=== PATIENT | male | born 1945 | race Caucasian/White ===

== ENCOUNTER 2018-09-21 12:26 | Inpatient (IN) | payer MEDICARE ==
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
--- NOTE | 2018-09-21 14:03 | XR ---
EXAMINATION TYPE: XR chest 1V portable DATE OF EXAM: 09/21/2018 COMPARISON: NONE HISTORY: Preop left hip fracture TECHNIQUE: frontal view of the chest is obtained on 2 images. FINDINGS: There is no focal air space opacity, pleural effusion, or pneumothorax seen. The cardiac silhouette size is within normal limits. The patient is rotated. There are posterior right rib fractu res at the fifth sixth and seventh ribs of questionable age. Additionally left rib fractures are pres ent at the fifth sixth seventh and eighth ribs. IMPRESSION: Rib fractures of indeterminate age.
[2018-09-21 14:39] LABS: Basophils % (A) 0 %; Eosinophils # (A) 0.1 k/uL (0-0.7); Eosinophils % (A) 0 %; HCT 40.1 % (39.0-53.0); HGB 12.9 gm/dL (13.0-17.5); Lymphocytes # (A) 1.7 k/uL (1.0-4.8); Lymphocytes % (A) 13 %; MCH 30.7 pg (25.0-35.0); MCHC 32.3 g/dL (31.0-37.0); MCV 95.3 fL (80.0-100.0); Mean Platelet Volume 6.8; Monocytes # (A) 0.7 k/uL (0-1.0); Monocytes % (A) 6 %; Neutrophils # (A) 10.7 k/uL (1.3-7.7); Neutrophils % (A) 80 %; Platelet Count 356 k/uL (150-450); RBC 4.21 m/uL (4.30-5.90); RDW 13.4 % (11.5-15.5); WBC 13.4 k/uL (3.8-10.6)
[2018-09-21 14:47] LABS: Albumin 4.1 g/dL (3.5-5.0); Calcium 9.4 mg/dL (8.4-10.2); Potassium 4.3 mmol/L (3.5-5.1); Total Bilirubin 0.4 mg/dL (0.2-1.3)
[2018-09-21] MEDS ORDERED: HYDROmorphone 0.5 MG/0.5 ML SYRINGE IVP PRN (15:12)
[2018-09-21] MEDS ORDERED: NALOXONE 0.4 MG/ML 1 ML VIAL IV PRN (15:12)
[2018-09-21 16:02] LABS: Prothrombin Time 10.5 sec (9.0-12.0)
[2018-09-21] MEDS: SODIUM CHLORIDE 0.9% 1,000 ML IV SCH ×2 (16:02→23:37)
[2018-09-21] MEDS: MORPHINE SULFATE 4 MG/ML SYRINGE IV PRN ×3 (16:03→23:37)
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
[2018-09-21 19:24] VITALS: BMI 27.6
[2018-09-21] MEDS: ENOXAPARIN 40 MG/0.4 ML SYRINGE SQ SCH (22:31)
[2018-09-22] MEDS: MORPHINE SULFATE 4 MG/ML SYRINGE IV PRN (04:03)
[2018-09-22] MEDS ORDERED: LACTATED RINGERS 1,000 ML IV ONE ×2 (06:17→07:56)
[2018-09-22] MEDS ORDERED: fentaNYL (PF) 50 MCG/ML 2 ML AMP IV ONE (06:43)
[2018-09-22] MEDS ORDERED: TRANEXAMIC ACID 1,000 MG in SODIUM CHLORIDE 0.9% 100 ML IVPB ONE ×2 (06:56→07:00)
[2018-09-22] MEDS ORDERED: ROPIVACAINE 246.25 MG, EPINEPHrine 0.5 MG, KETOROLAC 30 MG, cloNIDine HCL/PF 80 MCG, WA... MISCELLANE ONE ×5 (06:57)
[2018-09-22] MEDS ORDERED: SODIUM CHLORIDE 0.9% 100 ML with ceFAZolin 2,000 MG IV ONE ×2 (07:00)
[2018-09-22] MEDS ORDERED: ceFAZolin 3,000 MG in SODIUM CHLORIDE 0.9% IRRIGATIO 3,000 ML IRRIGATION ONE (07:56)
--- NOTE | 2018-09-22 08:54 | P.OP ---
Date of Procedure: 09/22/18 Preoperative Diagnosis: Displaced left hip femoral neck fracture Postoperative Diagnosis: Same Procedure(s) Performed: Direct anterior left total hip arthroplasty Implants: 1. Depuy Corail KA size 15 standard collar press-fit femoral stem 2. Depuy pinnacle 56 mm press-fit acetabular shell 3. Depuy pinnacle polyethylene acetabular liner 56 mm OD 36 mm ID 4. Biolox delta ceramic femoral head +5 36 mm Anesthesia: SHARONA, local Surgeon: Marco Antonio Finnegan [place] Worker Helper #1: Juan Wyatt Estimated Blood Loss (ml): 350 Pathology: other (Femoral head) Condition: stable Disposition: PACU Indications for Procedure: 73-year-old patient seen with a displaced left hip femoral neck fracture. After treatment options were discussed elected to proceed with direct anterior left total hip arthroplasty. Operative Findings: see description of procedure Description of Procedure: The patient was taken to the operative suite. Patient underwent a general anesthetic by the department of anesthesia. Patient was then transferred to the [place] table. Patient was given preoperative IV antibiotics and TXA. Both lower extremities were placed in standard leg spars. The hip was then prepped and draped in the normal sterile orthopedic fashion. A standard anterior incision was made beginning 3 cm lateral and 1 cm distal to the ASIS extending 10 cm. Dissection was then carried down through the subcutaneous soft tissues down to the fascia overlying the tensor fascia stewart. An incision was now made through the fascia. Careful dissection was taken down exposing the tensor fascia stewart muscle. A Cobra retractor was now placed along the medial femoral neck and a second one along the lateral femoral neck. The venous circumflex vessels were now identified, cauterized and clipped. We identified the anterior hip capsule. An incision was made through the hip capsule along the lateral border. I performed a partial anterior capsulectomy. We immediately encountered hemarthrosis which was evacuated. The displaced femoral neck fracture was identified. Retractors were now placed around the femoral neck itself. I used a sagittal saw to remove some excessive neck. The femoral head was now removed without difficulty. The extremity was now rotated to 45 of external rotation. It was locked in position. Residual labrum was now debrided out. Serial reaming was performed of the acetabulum while Jorge MARIO assisted holding an anterior retractor for exposure. Once we reached the appropriate size and a trial was position and fit nicely. The appropriate size was now chosen opened and made available. It was introduced into the acetabulum without difficulty. The C-arm/fluoroscopy was now brought into the operative field. We made sure we had a true AP pelvic view. We now under direct C-arm/fluoroscopy introduced into the acetabular component with appropriate version and inclination. I held the cup in appropriate position well Jorge MARIO used a mallet to seat the acetabular component. I noted the component now to be well seated and stable. Acetabular cup introduce her was removed. The C-arm was pulled back. An appropriate liner was introduced and clicked into position. It was felt to be stable. At this point retractors were removed. The extremity was now placed into 120 external rotation with no traction. The leg was now dropped to the ground and adducted. Appropriate retractors were now positioned along the proximal femur. We also placed our femoral look into position. Additional capsular releasing was performed to gain access to the proximal femur. We now used a box osteotome. A canal finder was now utilized. Serial broaching was now performed with the assistance of Jorge MARIO tapping the broaches down with a mallet while held the broach in appropriate rotation and position. This was done until we reached the appropriate size with good overall rotational stability. Appropriate calcar planing was performed. A trial head/neck was placed into position. The hip was now reduced. The C-arm/fluoroscopy was brought back into the operative field. A spot film was obtained of the nonoperative hip. A spot film was obtained of the trial components. Overlays were performed, we noted good overall alignment and positioning for determining leg length. The C-arm/fluoroscopy was pulled back. Retractors were repo sitioned and the hip was dislocated. The leg was again taken down to the ground and adducted. Appropriate retractors were repositioned as well as the femoral hook. All trial components were removed. The femoral implant was opened along with the femoral head. The femoral implant was introduced on the appropriate handle into our pre-broached area. I held the component position well Jorge MARIO used a mallet to seat the femoral component. The femoral component was now noted to be well seated and stable.. The femoral head was introduced with good positioning and fixation noted. Retractors were now removed. The hip was now reduced. There appeared be good positioning of the hip confirmed on intraoperative fluoroscopy. Spot films were obtained to document this. A second gram of TXA was given. The deep and superficial soft tissues were infiltrated with local analgesic. Bipolar cautery had been utilized intermittently through the procedure for hemostasis. The wound was irrigated copiously with pulse lavage mechanical irrigation. The fascia was repaired with Vicryl suture. The subcutaneous soft tissues were repaired in layers with Vicryl suture. The skin was approximated with pernio/Dermabond. Sterile dressings were applied. Patient was then awakened, transferred to a bed and taken to recovery in stable condition. Jorge MARIO assisted with the complex procedure.
[2018-09-22] MEDS ORDERED: NALOXONE 0.4 MG/ML 1 ML VIAL IV PRN (08:55)
[2018-09-22] MEDS ORDERED: ONDANSETRON 4 MG/2 ML VIAL IVP PRN (08:55)
[2018-09-22] MEDS ORDERED: traMADol 50 MG TAB PO PRN (08:55)
[2018-09-22] MEDS ORDERED: HYDROcodone/APAP 5-325MG 1 EACH TAB PO PRN (08:55)
[2018-09-22] MEDS ORDERED: HYDROmorphone 0.5 MG/0.5 ML SYRINGE IVP PRN ×3 (08:55)
--- NOTE | 2018-09-22 08:55 | XR ---
EXAMINATION TYPE: XR Hip Limited LT, FL guidance operating room DATE OF EXAM: 09/22/2018 CLINICAL HISTORY: Left anterior hip arthroplasty. Fluoroscopic documentation. TECHNIQUE: Fluoroscopy. COMPARISON: None. FINDINGS: Fluoroscopic guidance was provided during procedure performed by Dr. Finnegan. A total o f 29 seconds of fluoroscopic time was utilized during the procedure and 1 spot images was acquired du ring left hip arthroplasty. IMPRESSION: As Above.
[2018-09-22] MEDS ORDERED: ONDANSETRON 4 MG/2 ML VIAL IVP ONE (10:11)
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
[2018-09-22] MEDS: ONDANSETRON 4 MG/2 ML VIAL IVP PRN (10:55)
[2018-09-22] MEDS: ENOXAPARIN 40 MG/0.4 ML SYRINGE SQ SCH (11:26)
[2018-09-22] MEDS: SODIUM CHLORIDE 0.9% 1,000 ML IV SCH ×3 (11:26→23:17)
[2018-09-22] MEDS: ceFAZolin IN SWFI 2 GM/20 ML SYRINGE IVP SCH ×2 (17:42→23:11)
[2018-09-22] MEDS: LACTATED RINGERS 1,000 ML IV SCH ×2 (17:43→20:07)
[2018-09-22 18:01] LABS: Basophils % (A) 0 %; Eosinophils # (A) 0.1 k/uL (0-0.7); Eosinophils % (A) 1 %; HCT 32.5 % (39.0-53.0); HGB 10.7 gm/dL (13.0-17.5); Lymphocytes # (A) 1.6 k/uL (1.0-4.8); Lymphocytes % (A) 12 %; MCH 31.9 pg (25.0-35.0); MCV 96.7 fL (80.0-100.0); Mean Platelet Volume 7.3; Monocytes # (A) 0.7 k/uL (0-1.0); Monocytes % (A) 5 %; Neutrophils # (A) 10.8 k/uL (1.3-7.7); Neutrophils % (A) 81 %; Platelet Count 268 k/uL (150-450); RBC 3.36 m/uL (4.30-5.90); WBC 13.3 k/uL (3.8-10.6)
[2018-09-22] MEDS: SENNOSIDES-DOCUSATE SODIUM 1 EACH TAB PO SCH (20:06)
[2018-09-22] MEDS: HYDROcodone/APAP 5-325MG 1 EACH TAB PO PRN (23:47)
[2018-09-23] MEDS: HYDROcodone/APAP 5-325MG 1 EACH TAB PO PRN ×3 (05:24→21:37)
--- NOTE | 2018-09-23 07:21 | PN ---
PROGRESS NOTE DATE OF SERVICE: 09/22/2018 PRESENTING COMPLAINT: Hip fracture. INTERVAL HISTORY: Patient is status post fall followed by hip fracture, status post arthroplasty. A little bit drowsy from pain medications. Did not have much of an appetite this morning, slight nausea was present. REVIEW OF SYSTEMS: Done for constitutional, cardiovascular, GI, pulmonary; relevant findings as above. CURRENT MEDICATIONS: Current medications are reviewed include Lovenox for DVT prophylaxis. PHYSICAL EXAMINATION: On examination, temperature 98.1, pulse 68, respiration 15, blood pressure 131/71, pulse ox 95% on room air. GENERAL APPEARANCE: Lying in bed, awake, tired appearing. EYES: Pupils equal. Conjunctivae normal. NECK: JVD not raised. Mass not palpable. RESPIRATORY: Effort normal. LUNGS: Clear. CARDIOVASCULAR: First and second sounds normal. No edema. ABDOMEN: Soft, nontender. Liver and spleen not palpable. PSYCHIATRY: Able to answer questions. MUSCULOSKELETAL: Dressing over the operative site. INVESTIGATIONS: White count 13.3, hemoglobin 10.7. ASSESSMENT: 1. Left hip fracture secondary to fall followed by arthroplasty. 2. Acute postoperative blood loss anemia expected from surgery. 3. Essential hypertension. 4. Leukocytosis reactive from surgery, no evidence of infection. 5. Nausea as a side effect of pain medication. PLAN: Care was discussed with the patient. Questions were answered. Iron supplementation will be added. MMODL / IJN: [id number] /
[2018-09-23] MEDS: MELOXICAM 7.5 MG TAB PO SCH (09:16)
[2018-09-23] MEDS: ENOXAPARIN 40 MG/0.4 ML SYRINGE SQ SCH (09:16)
[2018-09-23] MEDS: FERROUS SULFATE 325 MG TAB PO SCH ×2 (09:17→17:54)
[2018-09-23 09:22] LABS: Basophils % (A) 0 %; Eosinophils # (A) 0.1 k/uL (0-0.7); Eosinophils % (A) 1 %; HCT 31.8 % (39.0-53.0); HGB 10.4 gm/dL (13.0-17.5); Lymphocytes # (A) 1.7 k/uL (1.0-4.8); Lymphocytes % (A) 15 %; MCH 30.9 pg (25.0-35.0); MCHC 32.6 g/dL (31.0-37.0); MCV 94.8 fL (80.0-100.0); Monocytes # (A) 0.7 k/uL (0-1.0); Monocytes % (A) 6 %; Neutrophils % (A) 78 %; Platelet Count 257 k/uL (150-450); RBC 3.35 m/uL (4.30-5.90); RDW 13.7 % (11.5-15.5); WBC 11.6 k/uL (3.8-10.6)
--- NOTE | 2018-09-23 10:23 | P.PN ---
Subjective Progress Note Date: 09/23/18 Principal diagnosis: s/p direct anterior left total hip arthroplasty Patient evaluated side, he's resting in his hospital chair. He is ambulating with therapies first time today. He notes improvement in discomfort. He still has a little bit of nausea. Denies any chest pain or shortness of breath Objective - Vital Signs Vital signs: Vital Signs Temp 99.1 F 09/23/18 06:55 Pulse 90 09/23/18 06:55 Resp 17 09/23/18 01:15 BP 143/61 09/23/18 06:55 Pulse Ox 92 L 09/23/18 06:55 Intake & Output 09/22/18 09/23/18 09/23/18 18:59 06:59 18:59 Intake Total 1321 1240 Output Total 715 1700 Balance 606 -460 Intake: IV 1001 Intake, IV Titration 700 Amount Lactated Ringers 1,000 ml 700 @ 70 mls/hr IV .[id number] [facility] Rx#:[id number] Oral 320 540 Output: Urine 365 1700 Uretheral (Bah) 1700 Estimated Blood Loss 350 Other: Voiding Method Indwelling Catheter # Voids 1 - Exam Left lower extremity: Incision is clean, dry, and intact. The exofin fusion tape is in good condition. There is minimal soft tissue swelling and ecchymosis surrounding the medial and lateral aspects of the incision. Calf is soft, no tenderness with palpation. Plantar flexion, dorsiflexion, EHL, FHL are intact. Sensory exam to light touch throughout the extremity is intact, dorsal pedis pulses 2+. - Labs CBC & Chem 7: 09/23/18 08:57 09/21/18 14:22 Labs: Abnormal Lab Results - Last 24 Hours (Table) 09/22/18 09/23/18 Range/Units 17:18 08:57 WBC 13.3 H 11.6 H (3.8-10.6) k/uL RBC 3.36 L 3.35 L (4.30-5.90) m/uL Hgb 10.7 L 10.4 L (13.0-17.5) gm/dL Hct 32.5 L 31.8 L (39.0-53.0) % Neutrophils # 10.8 H 9.0 H (1.3-7.7) k/uL Assessment and Plan Plan: Assessment: Postop day #1 status post direct anterior left total hip arthroplasty Plan: Pain control, utilize oral medication GI and DVT prophylaxis, continue current medication Encourage incentive spirometer Daily dressing changes Icing and elevating the left lower extremity Continue work with physical therapy Medical recommendations Discharge planning: Plan for discharge home tomorrow, case management and social work are working for rehab placement if needed Time with Patient: Less than 30
[2018-09-23] MEDS: SODIUM CHLORIDE 0.9% 1,000 ML IV SCH ×2 (15:33→16:51)
[2018-09-23] MEDS: LACTATED RINGERS 1,000 ML IV SCH (15:34)
[2018-09-23] MEDS: ONDANSETRON 4 MG/2 ML VIAL IVP PRN (15:42)
[2018-09-23] MEDS: SENNOSIDES-DOCUSATE SODIUM 1 EACH TAB PO SCH (21:37)
[2018-09-23] MEDS: METOPROLOL TARTRATE 50 MG TAB PO SCH (21:37)
--- NOTE | 2018-09-23 23:01 | PN ---
PROGRESS NOTE DATE OF SERVICE: 09/23/2018 PRESENTING COMPLAINT: Hip fracture. INTERVAL HISTORY: Patient is status post hip fracture followed by hip arthroplasty. More awake today. Did tolerate some diet. Slight nausea. Did work a bit with therapy. Some pain is present at the operative site. REVIEW OF SYSTEMS: Done for constitutional, cardiovascular, GI, pulmonary; relevant findings as above. CURRENT MEDICATIONS: Reviewed. They include Lovenox. PHYSICAL EXAMINATION: Temperature 98.5, pulse 99, respiration 16, blood pressure 151/73, pulse ox 95% on 1.5 L. GENERAL APPEARANCE: Sitting up in a chair. Tired-appearing, though more awake. EYES: Pupils equal. Conjunctivae normal. NECK: JVD not raised. Mass not palpable. RESPIRATORY: Effort normal. Lungs are clear. CARDIOVASCULAR: First and second sounds normal. No edema. ABDOMEN: Soft, non-tender. Liver and spleen not palpable. PSYCHIATRY: Answering questions appropriately. INVESTIGATIONS: White count 11.6, hemoglobin 10.4. ASSESSMENT: 1. Left hip fracture secondary to a fall followed by arthroplasty. 2. Acute postoperative blood loss anemia, expected from surgery. 3. Essential hypertension. 4. Leukocytosis, reactive from surgery. No evidence of infection. 5. Nausea as a side effect of pain medication. PLAN: Continue current medication and treatment plan. Will discontinue the IV fluids. I told the patient to use less pain medication if possible. MMODL / IJN: [id number] /
[2018-09-24 07:21] VITALS: BP 161/73; PULSE 81; RESP 18; TEMP 98.7
[2018-09-24] MEDS: MELOXICAM 7.5 MG TAB PO SCH (08:41)
[2018-09-24] MEDS: METOPROLOL TARTRATE 50 MG TAB PO SCH (08:41)
[2018-09-24] MEDS: FERROUS SULFATE 325 MG TAB PO SCH (08:41)
[2018-09-24] MEDS: ENOXAPARIN 40 MG/0.4 ML SYRINGE SQ SCH (08:42)
[2018-09-24] MEDS ORDERED: LISINOPRIL 20 MG TAB PO SCH (09:00)
--- NOTE | 2018-09-24 11:27 | P.PN ---
Subjective Progress Note Date: 09/24/18 Principal diagnosis: s/p direct anterior left total hip arthroplasty Patient evaluated side, he's resting in his hospital chair. Pains continue to improve. Patient's nausea has improved. Denies any chest pain or shortness of breath Objective - Vital Signs Vital signs: Vital Signs Temp 98.7 F 09/24/18 07:19 Pulse 81 09/24/18 07:19 Resp 18 09/24/18 07:19 BP 161/73 09/24/18 07:19 Pulse Ox 93 L 09/24/18 07:19 Intake & Output 09/23/18 09/24/18 09/24/18 18:59 06:59 18:59 Intake Total 240 280 180 Output Total 200 400 Balance 40 -120 180 Intake: Oral 240 280 180 Output: Urine 200 400 Other: Voiding Method Indwelling Catheter # Voids 1 - Exam Left lower extremity: Incision is clean, dry, and intact. The exofin fusion tape is in good condition. There is minimal soft tissue swelling and ecchymosis surrounding the medial and lateral aspects of the incision. Calf is soft, no tenderness with palpation. Plantar flexion, dorsiflexion, EHL, FHL are intact. Sensory exam to light touch throughout the extremity is intact, dorsal pedis pulses 2+. - Labs CBC & Chem 7: 09/23/18 08:57 09/21/18 14:22 Assessment and Plan Plan: Assessment: Postop day #2 status post direct anterior left total hip arthroplasty Plan: Pain control, plan for discharge on Tylenol and [facility] GI and DVT prophylaxis, aspirin 81 mg twice a day for 30 days Encourage incentive spirometer Daily dressing changes Icing and elevating the left lower extremity Continue work with physical therapy Medical recommendations Discharge planning: Patient will be discharged to subacute rehab today Time with Patient: Less than 30
--- NOTE | 2018-09-24 11:31 | P.DS ---
Providers Date of admission: 09/21/18 14:40 Expected date of discharge: 09/24/18 Attending physician: Marco Antonio Finnegan Consults: 09/21/18 15:13 Consult Physician Routine Consulting Provider: Hernandez Zuñiga Consult Reason/Comments: medical clearance for surgery Do you want consulting provider notified?: Yes Primary care physician: Dustin Choudhary [facility] Course: Date of admission: 09/21/2018 Date of discharge: 09/24/2018 Admission diagnosis: Displaced left subcapital femoral neck fracture Discharge diagnosis: Status post left direct anterior total hip arthroplasty Attending physician: Dr. Finnegan Surgical procedures: Direct anterior left total hip arthroplasty Brief history: Patient is a 73-year-old male who presented to [facility] on 09/21/2018 after sustaining a fall at his home in his driveway. Patient was brought to [facility], it was determined he had a displaced left subcapital femoral neck fracture. I was contacted by the emergency room staff and evaluated the patient. Patient was admitted under orthopedic care with plan for surgical intervention. Internal medicine was consulted for medical clearance and management. Patient was scheduled for surgery on 09/22/2018. Hospital course: Details of patient's surgery can be found in operative report. Patient tolerated the procedure well and was subsequently transported to orthopedic floor. Patient's orthopeidc and medical care was provided daily. Patient had daily laboratory tests performed for evaluation of overall blood counts. Patient had daily physical therapy to include strengthening range of motion as well as education with walker ambulation. Patient was treated with Lovenox for their postoperative DVT prophylaxis during their inpatient stay. Patient was noted to have a relatively uneventful postoperative course. Patient reported satisfactory pain control with oral pain medications by postoperative day 0. Patient showed satisfactory progress with physical therapy. Patient moved steadily through the program and had no difficulty meeting the goals by postoperative day 2. Given patient's otherwise satisfactory course and having met physical therapy goals, plan is to discharge patient rehab on postoperative day 2. Discharge condition/disposition: Patient will be discharged rehab in stable condition. Discharge medications: Instructions are given on resumption of patient's normal daily medications per primary care recommendation, in addition patient will be prescribed Felda 5 mg/325 mg, Tylenol 650 mg, Colace 100 mg, aspirin 81 mg, ferrous sulfate 325 mg. Discharge instructions: 1. Wound care and infection precautions, keep incision dry and covered while showering, no lotions, creams, moisturizers. No soaking, tubs, pools, hottubs. Do not scrub over the incision. 2. Weight-bear as tolerated with walker / cane until follow-up. 3. Ice and elevate when necessary. Do not exceed 20 minutes per hour with ice pack. 4. Utilize compression sleeve until seen at first follow up appointment. 5. Visiting nursing care. 6. Home physical therapy 7. Pain meds and anticoagulants per prescription. 8. Pain medication has potential to cause constipation. Increase oral fluid and fiber intake. Contact primary care provider if you have not had a bowel movement within 48 hours after discharge 9. No anti-inflammatory medication until discussed at first post operative visit, this including Motrin, Aleve, Mobic, Diclofenac 10. Follow up in office at 2 weeks postop with Jorge Wyatt PA-C 11. Follow up with your primary care doctor 7-10 days after discharge. 12. Contact [facility] with any questions, . Procedures: Direct anterior left total hip arthroplasty Patient Condition at Discharge: Fair Plan - Discharge Summary Discharge Rx Participant: Yes New Discharge Prescriptions: New Aspirin [Adult Low Dose Aspirin EC] 81 mg PO BID #60 tablet. Docusate [Colace] 100 mg PO DAILY #30 capsule Ferrous Sulfate [Feosol] 325 mg PO BID #60 tab Hydrocodone/Acetaminophen [Felda 5-325] 1 each PO Q6HR PRN #28 tab PRN Reason: Pain Acetaminophen Tab [Tylenol Tab] 650 mg PO Q6H #60 tablet No Action Metoprolol Tartrate [Lopressor] 50 mg PO BID Enalapril Maleate [Vasotec] 10 mg PO DAILY Discharge Medication List Enalapril Maleate [Vasotec] 10 mg PO DAILY 09/21/18 [History] Metoprolol Tartrate [Lopressor] 50 mg PO BID 09/21/18 [History] Acetaminophen Tab [Tylenol Tab] 650 mg PO Q6H #60 tablet 09/24/18 [Rx] Aspirin [Adult Low Dose Aspirin EC] 81 mg PO BID #60 tablet. 09/24/18 [Rx] Docusate [Colace] 100 mg PO DAILY #30 capsule 09/24/18 [Rx] Ferrous Sulfate [Feosol] 325 mg PO BID #60 tab 09/24/18 [Rx] Hydrocodone/Acetaminophen [Felda 5-325] 1 each PO Q6HR PRN #28 tab 09/24/18 [Rx] Follow up Appointment(s)/Referral(s): Dustin Choudhary, [Primary Care Provider] - 1-2 days Juan Wyatt, SRINI [PHYSICIAN ENVIRONMENTAL CONFLICT MANAGER] - 2 Weeks Activity/Diet/Wound Care/Special Instructions: Orthopedic Discharge Instructions: 1. Wound care and infection precautions, keep incision dry and covered while showering, no lotions, creams, moisturizers. No soaking, pools, hot tubs. Do not scrub over incision. 2. Weight-bear as tolerated with walker / cane until follow-up. 3. Ice and elevate when necessary. Do not exceed 20 minutes per hour with ice pack. 4. Utilize compression sleeve until seen at first follow up appointment. 5. Pain meds and anticoagulants per prescription. 6. Pain medication has potential to cause constipation. Increase oral fluid and fiber intake. Contact primary care provider if you have not had a bowel movement within 48 hours after discharge. 7. No anti-inflammatory medication until discussed at first post operative visit, this including Motrin, Aleve, Mobic, Diclofenac. 8. Follow up in office at 2 weeks postop with Jorge Wyatt PA-C 9. Follow up with your primary care doctor 7-10 days after discharge. 10. Contact [facility] with any questions, . Discharge Disposition: TRANSFER TO SNF/ECF
== END 2018-09-24 15:12 | DRG 470 ==
LOC: EC 12:26 → 4SSUR 14:40
PROVIDERS: ADMIT Orthopaedic Surgery; ATTEND Orthopaedic Surgery
PROC: 0SRB04A Replacement of Left Hip Joint with Ceramic on Polyethylene Synthetic Substitute, Uncemented, Open Approach (ICD-10-PCS; principal; 2018-09-21)
DX: S72.012A Unspecified intracapsular fracture of left femur, initial encounter for closed fracture (principal); D62 Acute posthemorrhagic anemia; W01.0XXA Fall on same level from slipping, tripping and stumbling without subsequent striking against object, initial encounter; Y92.009 Unspecified place in unspecified non-institutional (private) residence as the place of occurrence of the external cause; D72.829 Elevated white blood cell count, unspecified; I10 Essential (primary) hypertension; Z87.81 Personal history of (healed) traumatic fracture; Z79.899 Other long term (current) drug therapy; Z88.0 Allergy status to penicillin
CPT/HCPCS: 36415; 71045; 73501; 73502; 80053; 85025; 85610; 86850; 86900; 86901; 93005

== ENCOUNTER 2018-10-06 13:34 | Inpatient (IN) | payer MEDICARE ==
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
[2018-10-06 15:25] LABS: Basophils # (A) 0.1 k/uL (0-0.2); Basophils % (A) 0 %; Eosinophils # (A) 0.4 k/uL (0-0.7); Eosinophils % (A) 2 %; HCT 32.5 % (39.0-53.0); HGB 10.4 gm/dL (13.0-17.5); Lymphocytes # (A) 1.9 k/uL (1.0-4.8); Lymphocytes % (A) 8 %; MCH 30.1 pg (25.0-35.0); MCHC 32.2 g/dL (31.0-37.0); MCV 93.4 fL (80.0-100.0); Mean Platelet Volume 6.8; Monocytes # (A) 0.9 k/uL (0-1.0); Monocytes % (A) 3 %; Neutrophils # (A) 22.2 k/uL (1.3-7.7); Neutrophils % (A) 87 %; RBC 3.47 m/uL (4.30-5.90); RDW 14.8 % (11.5-15.5); WBC 25.6 k/uL (3.8-10.6)
[2018-10-06 15:27] LABS: Platelet Count 732 k/uL (150-450)
[2018-10-06] MEDS ORDERED: ACETAMINOPHEN TAB 500 MG TAB PO STA (15:32)
[2018-10-06 15:34] LABS: ALT 20 U/L (21-72); AST 30 U/L (17-59); African American GFR (CKD) >90 (>60 ml/min/1.73 sqM); Albumin 4.2 g/dL (3.5-5.0); Alkaline Phosphatase 79 U/L (38-126); Anion Gap 10 mmol/L; Blood Urea Nitrogen 20 mg/dL (9-20); Calcium 9.5 mg/dL (8.4-10.2); Carbon Dioxide 22 mmol/L (22-30); Chloride 102 mmol/L (98-107); Glucose 107 mg/dL (74-99); Sodium 134 mmol/L (137-145); Total Bilirubin 0.6 mg/dL (0.2-1.3)
--- NOTE | 2018-10-06 15:44 | XR ---
EXAMINATION TYPE: XR chest 2V DATE OF EXAM: 10/06/2018 COMPARISON: 09/21/2018 HISTORY: Cough and fever TECHNIQUE: Frontal and lateral views of the chest are obtained. FINDINGS: Old healed fracture deformities are seen of the upper posterior right ribs and lateral lef t ribs. Interstitial prominence is unchanged from the prior. No new focal consolidation, pleural effu riley or pneumothorax. Peribronchial cuffing is seen and may relate to reactive or infectious airway d isease. This is most pronounced along the bronchus intermedius. Mild diffuse osseous demineralization and mild degenerative changes of the spine. IMPRESSION: No focal consolidation. Peribronchial cuffing may be related to reactive or infectious a irway disease.
[2018-10-06] MEDS: SODIUM CHLORIDE 0.9% 500 ML 500 ML IV SCH ×2 (15:47→15:48)
[2018-10-06 16:08] LABS: Prothrombin Time 10.5 sec (9.0-12.0)
[2018-10-06 16:19] LABS: Partial Thromboplastin Time 19.9 sec (22.0-30.0)
[2018-10-06 16:28] LABS: Appearance,Urine Clear (Clear); Bacteria,Urine Rare /hpf; Bilirubin,Urine Negative (Negative); Blood,Urine Trace (Negative); Color,Urine Yellow; Glucose,Urine (UA) Negative (Negative); Ketones,Urine Negative (Negative); Leukocyte Esterase,Urine Negative (Negative); Mucus,Urine Rare /hpf; Nitrite,Urine Negative (Negative); PH, Urine 5.5 (5.0-8.0); Protein,Urine Trace (Negative); RBC,Urine 3 /hpf (0-5); Specific Gravity,Urine 1.024 (1.001-1.035); Urobilinogen,Urine <2.0 mg/dL (<2.0); WBC,Urine 1 /hpf (0-5)
[2018-10-06] MEDS ORDERED: RX INFO: IV CONTRAST WAS GIVEN 1 EACH MISC MISCELLANE PRN (16:37)
--- NOTE | 2018-10-06 17:15 | CT ---
EXAMINATION TYPE: CT hip LT w con DATE OF EXAM: 10/06/2018 COMPARISON: None HISTORY: ABSCESS TO LEFT HIP AREA. FEVER CT DLP: 817.6 mGycm Automated exposure control for dose reduction was used. CONTRAST: Performed with IV Contrast, patient injected with 100 mL of Isovue 300. FINDINGS: Multiple axial sections were obtained from the mid ileum to the mid shaft of the femur with intraveno us contrast. There is a left hip prosthesis. Components appear in anatomic position. I see no fracture. There is n o evidence of focal bone destruction. There is a plate with screws fixing the pubic symphysis. There is no free fluid in the pelvis. I see no mass within the pelvis. Bladder distends smoothly. There is subcutaneous edema over the lateral aspect of the left hip. There is elongated subcutaneous fluid collection that measures 6 x 1 cm with calcification and air bubble on the lateral aspect of th e left hip joint. I see no definite muscle involvement. There is subcutaneous edema over the more lat eral and posterior proximal left thigh. The lower extent of the edema is not included on the exam. IMPRESSION: COMPLEX FLUID COLLECTION IN THE SUBCUTANEOUS TISSUES OVER THE ANTERIOR LATERAL ASPECT OF THE LEFT HIP IS NONSPECIFIC AND COULD RELATE TO ABSCESS OR HEMATOMA. MILD SUBCUTANEOUS EDEMA. NO FRACTURE. NO SIG N OF OSTEOMYELITIS.
[2018-10-06] MEDS ORDERED: NALOXONE 0.4 MG/ML 1 ML VIAL IV PRN (17:49)
[2018-10-06] MEDS ORDERED: IBUPROFEN 600 MG TAB PO STA (18:53)
[2018-10-06] MEDS: SODIUM CHLORIDE 0.9% 1,000 ML IV SCH (19:58)
[2018-10-06] MEDS: METOPROLOL TARTRATE 50 MG TAB PO SCH (20:20)
[2018-10-06] MEDS ORDERED: VANCOMYCIN IV PER PHARMACY 1 EACH MISC MISCELLANE SCH (20:45)
[2018-10-06] MEDS: VANCOMYCIN 1,500 MG in SODIUM CHLORIDE 0.9% 250 ML IVPB SCH (21:32)
[2018-10-07] MEDS: MULTIVITAMINS, THERA 1 EACH TAB PO SCH (08:19)
[2018-10-07] MEDS: VANCOMYCIN 1,500 MG in SODIUM CHLORIDE 0.9% 250 ML IVPB SCH ×2 (08:19→21:31)
[2018-10-07] MEDS: METOPROLOL TARTRATE 50 MG TAB PO SCH ×2 (08:19→21:29)
[2018-10-07] MEDS: LISINOPRIL 20 MG TAB PO SCH (08:19)
[2018-10-07] MEDS: ASPIRIN 81 MG PO SCH (08:20)
[2018-10-07 12:35] LABS: Basophils % (A) 0 %; Eosinophils # (A) 0.1 k/uL (0-0.7); Eosinophils % (A) 0 %; HCT 31.4 % (39.0-53.0); HGB 9.7 gm/dL (13.0-17.5); Hypochromasia Slight; Lymphocytes # (A) 1.6 k/uL (1.0-4.8); Lymphocytes % (A) 8 %; MCH 29.6 pg (25.0-35.0); MCHC 30.9 g/dL (31.0-37.0); MCV 95.7 fL (80.0-100.0); Monocytes % (A) 5 %; Neutrophils # (A) 17.9 k/uL (1.3-7.7); Neutrophils % (A) 86 %; Platelet Count 671 k/uL (150-450); RBC 3.28 m/uL (4.30-5.90); RDW 14.4 % (11.5-15.5); WBC 20.8 k/uL (3.8-10.6)
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
[2018-10-07] MEDS: ONDANSETRON 4 MG/2 ML VIAL IVP PRN (16:29)
[2018-10-07] MEDS: ENOXAPARIN 40 MG/0.4 ML SYRINGE SQ SCH (16:58)
[2018-10-07] MEDS: SODIUM CHLORIDE 0.9% 1,000 ML IV SCH (16:59)
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
[2018-10-07] MEDS ORDERED: AZITHROMYCIN 500 MG in SODIUM CHLORIDE 0.9% 250 ML IVPB STA (23:54)
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
[2018-10-08] MEDS: ACETAMINOPHEN TAB 325 MG TAB PO PRN ×2 (00:38→08:25)
[2018-10-08] MEDS: LISINOPRIL 20 MG TAB PO SCH (08:25)
[2018-10-08] MEDS: ASPIRIN 81 MG PO SCH (08:26)
[2018-10-08] MEDS: MULTIVITAMINS, THERA 1 EACH TAB PO SCH (08:26)
[2018-10-08] MEDS: ENOXAPARIN 40 MG/0.4 ML SYRINGE SQ SCH (08:26)
[2018-10-08] MEDS: METOPROLOL TARTRATE 50 MG TAB PO SCH ×2 (08:26→20:50)
[2018-10-08] MEDS: ONDANSETRON 4 MG/2 ML VIAL IVP PRN ×2 (08:34→17:20)
[2018-10-08 10:21] LABS: Basophils % (A) 0 %; Eosinophils # (A) 0.1 k/uL (0-0.7); Eosinophils % (A) 1 %; HCT 30.3 % (39.0-53.0); HGB 9.4 gm/dL (13.0-17.5); Hypochromasia Moderate; Lymphocytes # (A) 1.7 k/uL (1.0-4.8); Lymphocytes % (A) 11 %; MCH 30.3 pg (25.0-35.0); MCHC 31.1 g/dL (31.0-37.0); MCV 97.6 fL (80.0-100.0); Mean Platelet Volume 7.9; Monocytes # (A) 0.9 k/uL (0-1.0); Monocytes % (A) 6 %; Neutrophils # (A) 12.1 k/uL (1.3-7.7); Neutrophils % (A) 81 %; Platelet Count 644 k/uL (150-450); RBC 3.11 m/uL (4.30-5.90); RDW 14.3 % (11.5-15.5)
--- NOTE | 2018-10-08 11:53 | P.PN ---
Subjective Progress Note Date: 10/08/18 Principal diagnosis: Recent left total hip arthroplasty, fever with leukocytosis, possible pneumonia Patient is evaluated today at bedside. He states he's feeling better than he has of the last few days. He demonstrates no pain with regards to left hip. Infectious disease is considering a possible pneumonia has caused the symptoms and lab abnormalities. He continues to work with physical therapy. Objective - Vital Signs Vital signs: Vital Signs Temp 100.3 F H 10/08/18 07:00 Pulse 86 10/08/18 07:00 Resp 16 10/08/18 07:00 BP 147/63 10/08/18 07:00 Pulse Ox 91 L 10/08/18 07:00 Intake & Output 10/07/18 10/08/18 10/08/18 18:59 06:59 18:59 Intake Total 750 Output Total 400 300 Balance -400 750 -300 Weight 92.533 kg Intake: Intake, IV Titration 550 Amount Azithromycin 500 mg In 250 Sodium Chloride 0.9% 250 ml @ 250 mls/hr IVPB ONCE STA Rx#:[id number] cefTRIAXone 1 gm In 250 Sodium Chloride 0.9% 50 ml @ 100 mls/hr IVPB Q24HR REBECCA Rx#:[id number] cefTRIAXone 2 gm In 50 Sodium Chloride 0.9% 50 ml @ 100 mls/hr IVPB Q24H REBECCA Rx#:[id number] Oral 200 Output: Urine 400 300 - Exam Left lower extremity: His incision is well-healed, tape is in good position and condition. No redness or soft tissue swelling present. Range of motion reproduces no pain. His distal neurovascular exam is intact - Labs CBC & Chem 7: 10/08/18 06:09 10/08/18 06:00 Labs: Abnormal Lab Results - Last 24 Hours (Table) 10/07/18 10/08/18 Range/Units 10:45 06:09 WBC 20.8 H 15.0 H (3.8-10.6) k/uL RBC 3.28 L 3.11 L (4.30-5.90) m/uL Hgb 9.7 L 9.4 L (13.0-17.5) gm/dL Hct 31.4 L 30.3 L (39.0-53.0) % MCHC 30.9 L (31.0-37.0) g/dL Plt Count 671 H 644 H (150-450) k/uL Neutrophils # 17.9 H 12.1 H (1.3-7.7) k/uL Microbiology - Last 24 Hours (Table) 10/07/18 09:45 Gram Stain - Preliminary Sputum Sputum Culture - Preliminary 10/06/18 16:15 Urine Culture - Final Urine,Voided 10/06/18 15:09 Blood Culture - Preliminary Blood No Growth after 24 hours Assessment and Plan Plan: Assessment: 1. History of recent left total hip arthroplasty 2. Fever with leukocytosis and other elevated labs 3. Likely pneumonia Plan: With regards to left hip, he remains stable. Continue weightbearing as tolerated with cane or walker Other medical specialty recommendations We will continue to follow the patient as needed during hospital stay Time with Patient: Less than 30
[2018-10-08] MEDS: SODIUM CHLORIDE 0.9% 1,000 ML IV SCH (17:17)
[2018-10-08] MEDS ORDERED: VANCOMYCIN TROUGH DUE 1 EACH MISC MISCELLANE ONE (20:00)
[2018-10-08] MEDS: AZITHROMYCIN 500 MG TAB PO SCH (23:04)
[2018-10-09] MEDS: HYDROcodone/APAP 5-325MG 1 EACH TAB PO PRN ×2 (00:41→04:33)
[2018-10-09] MEDS: METOPROLOL TARTRATE 50 MG TAB PO SCH ×2 (08:04→21:08)
[2018-10-09] MEDS: ENOXAPARIN 40 MG/0.4 ML SYRINGE SQ SCH (08:04)
[2018-10-09] MEDS: MULTIVITAMINS, THERA 1 EACH TAB PO SCH (08:04)
[2018-10-09] MEDS: ASPIRIN 81 MG PO SCH (08:04)
[2018-10-09] MEDS: LISINOPRIL 20 MG TAB PO SCH (08:04)
[2018-10-09 08:24] LABS: African American GFR (CKD) >90 (>60 ml/min/1.73 sqM)
[2018-10-09 09:37] LABS: HCT 29.2 % (39.0-53.0); HGB 9.7 gm/dL (13.0-17.5); Hypochromasia Slight; MCH 31.5 pg (25.0-35.0); MCHC 33.1 g/dL (31.0-37.0); MCV 95.2 fL (80.0-100.0); Mean Platelet Volume 8.1; Platelet Count 573 k/uL (150-450); RBC 3.07 m/uL (4.30-5.90); RDW 14.5 % (11.5-15.5); WBC 11.5 k/uL (3.8-10.6)
[2018-10-09] MEDS: ALBUTEROL NEBULIZED 2.5 MG/3 ML INHALATION PRN (12:36)
[2018-10-09] MEDS: SODIUM CHLORIDE 0.9% 1,000 ML IV SCH (17:28)
[2018-10-09] MEDS: ONDANSETRON 4 MG/2 ML VIAL IVP PRN (17:30)
[2018-10-09] MEDS ORDERED: LOPERAMIDE 2 MG CAP PO PRN (18:18)
[2018-10-09] MEDS: ACETAMINOPHEN TAB 325 MG TAB PO PRN (19:10)
[2018-10-09] MEDS: BUDESONIDE 0.5 MG/2 ML NEBU INHALATION SCH (20:43)
[2018-10-09] MEDS: MONTELUKAST 10 MG TAB PO SCH (21:04)
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
[2018-10-09] MEDS: AZITHROMYCIN 500 MG TAB PO SCH (23:33)
--- NOTE | 2018-10-10 06:22 | PN ---
PROGRESS NOTE DATE OF SERVICE: 10/08/2018 PRESENTING COMPLAINT: Cough, fever. INTERVAL HISTORY: The patient with recent hip surgery presented with pneumonia. The patient is actually feeling better. Coughing up some sputum. Up in the hallway. Did tolerate some diet. Hip symptoms are minimal. REVIEW OF SYSTEMS: Done for constitutional, cardiovascular, GI, pulmonary; relevant findings as above. CURRENT MEDICATIONS: Current medications are reviewed that include ceftriaxone and Zithromax. PHYSICAL EXAMINATION: On examination, temperature 100.3, pulse 86, respiration 16, blood pressure 147/63, pulse ox 91% on room air. GENERAL APPEARANCE: Sitting up, awake. EYES: Pupils equal. Conjunctivae normal. NECK: JVD not raised. Mass not palpable. RESPIRATORY: Effort increased. LUNGS: Right basal crackles. CARDIOVASCULAR: First and second sounds normal. No edema. ABDOMEN: Soft, nontender. Liver and spleen not palpable. PSYCHIATRY: Alert and oriented x3. Mood and affect normal. INVESTIGATIONS: White count 16, hemoglobin 9.4. Influenza negative. ASSESSMENT: 1. Right lower lobe pneumonia, to respond clinically, suspect gram-negative organism. 2. Essential hypertension. 3. Reactive thrombocytosis. PLAN: Continue with antibiotics including ceftriaxone and Zithromax. Patient does follow with Dr. Vijay Echevarria. Encouraged to ambulate. Will follow. MMODL / IJN: [id number] /
--- NOTE | 2018-10-10 06:28 | PN ---
PROGRESS NOTE DATE OF SERVICE: 10/09/2018 PRESENTING COMPLAINT: Cough. INTERVAL HISTORY: The patient is somewhat congested. Admitted for pneumonia. Overall feeling better. Tolerating a diet. Sputum has loosened up. REVIEW OF SYSTEMS: Done for constitutional, cardiovascular, GI, pulmonary; relevant findings as above. CURRENT MEDICATIONS: Current medications are reviewed that include IV ceftriaxone and Zithromax. PHYSICAL EXAMINATION: On examination, temperature 97.9 pulse 71, respirations 16, blood pressure 139/70, pulse ox 98% on room air. GENERAL APPEARANCE: Sitting up, awake. EYES: Pupils equal. Conjunctivae normal. NECK: JVD not raised. Mass not palpable. RESPIRATORY: Effort normal. LUNGS: Right basal crackles. CARDIOVASCULAR: First and second sounds normal. No edema. ABDOMEN: Soft, nontender. Liver and spleen not palpable. PSYCHIATRY: Alert and oriented x3. Mood and affect normal. INVESTIGATIONS: White count 11.5, hemoglobin 9.7, platelets 573. Stool for C difficile was negative. ASSESSMENT: 1. Right lower lobe pneumonia, started to respond clinically, suspect gram-negative organism. 2. Essential hypertension. 3. Reactive thrombocytosis. 4. Possible antibiotic associated diarrhea. PLAN: Patient overall doing better. Continue current medication and treatment plan. Hopefully can be switched to oral antibiotics shortly if afebrile tomorrow. MMODL / IJN: [id number] /
[2018-10-10] MEDS: BUDESONIDE 0.5 MG/2 ML NEBU INHALATION SCH ×2 (07:43→19:23)
[2018-10-10] MEDS: METOPROLOL TARTRATE 50 MG TAB PO SCH ×2 (07:43→20:14)
[2018-10-10] MEDS: LISINOPRIL 20 MG TAB PO SCH (07:43)
[2018-10-10] MEDS: MULTIVITAMINS, THERA 1 EACH TAB PO SCH (07:44)
[2018-10-10] MEDS: ASPIRIN 81 MG PO SCH (07:44)
[2018-10-10] MEDS: ENOXAPARIN 40 MG/0.4 ML SYRINGE SQ SCH (07:44)
[2018-10-10 08:53] LABS: African American GFR (CKD) >90 (>60 ml/min/1.73 sqM)
[2018-10-10] MEDS: ALBUTEROL NEBULIZED 2.5 MG/3 ML INHALATION PRN ×2 (10:39→19:25)
--- NOTE | 2018-10-10 14:21 | P.PN ---
Subjective Progress Note Date: 10/10/18 patient seen and examined for follow-up. The patient does have improvement in his white blood cell count and fevers. He states he is still coughing but feels better overall. He was hoping to go home today. The patient is agreeable to stay for 1 more day of IV antibiotics and possible discharge home tomorrow. He is sitting in bed on room air. Objective - Vital Signs Vital signs: Vital Signs Temp 98.4 F 10/10/18 05:00 Pulse 66 10/10/18 10:53 Resp 20 10/10/18 05:00 BP 152/74 10/10/18 05:00 Pulse Ox 91 L 10/10/18 05:00 Intake & Output 10/09/18 10/10/18 10/10/18 18:59 06:59 18:59 Intake Total 540 600 Output Total 3 0 Balance 537 600 Intake: Oral 540 600 Output: Urine 2 Stool 1 0 Other: # Voids 1 2 2 # Bowel Movements 1 1 - Exam general: Patient is alert and oriented 3, no acute distress Cardiovascular: Regular rate and rhythm, S1/S2 Lungs: Diminished breath sounds bilaterally otherwise clear Abdomen: Soft nontender nondistended positive bowel sounds Extremities: No edema - Labs CBC & Chem 7: 10/09/18 07:38 10/10/18 07:36 Labs: Microbiology - Last 24 Hours (Table) 10/06/18 15:09 Blood Culture - Preliminary Blood No Growth after 72 hours Assessment and Plan Assessment: right lower lobe pneumonia Possible underlying asthma Leukocytosis and pyrexia Recent hip surgery hypertension O2 to maintain saturation greater than or equal to 90% Steroid taper Pulmicort and Albuterol Singulair Antibiotics Sputum culture Incentive spirometry and pulmonary hygiene GI and DVT prophylaxis
[2018-10-10] MEDS: SODIUM CHLORIDE 0.9% 1,000 ML IV SCH (14:28)
[2018-10-10] MEDS: predniSONE 20 MG TAB PO SCH (14:41)
[2018-10-10] MEDS: SUCRALFATE 1 GM TAB PO SCH ×2 (18:03→20:14)
[2018-10-10] MEDS: guaiFENesin-DM 600/30MG 1 EACH TAB.ER.12H PO SCH (18:03)
[2018-10-10] MEDS: MONTELUKAST 10 MG TAB PO SCH (20:14)
[2018-10-10] MEDS: HYDROcodone/APAP 5-325MG 1 EACH TAB PO PRN (20:14)
[2018-10-10] MEDS: AZITHROMYCIN 500 MG TAB PO SCH (23:19)
[2018-10-10 23:47] VITALS: RESP 20
--- NOTE | 2018-10-11 00:07 | P.PN ---
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 He has been very active throughout his life and is a tall gentleman of a thin build. The hip pain became problematic and constantly sought the left total hip arthrop lasty to relieve his pain. Surgery actually went relatively well and he was progressing with his physical therapy goals. He was doing well enough that he was discharged home just 48 hours before his presentation to hospital. The patient relates that in the last few days at the rehab facility his suite mate was ill with a significant respiratory infection and he himself developed significant cough also. He presents to the emergency center with high-grade fever cough generalized malaise and feeling very poorly. Because of the recent left total hip arthroplasty consult was requested to ensure there was no infection at that site. The patient this time is having ongoing significant respiratory symptoms. He has a productive cough, he is swallowing his phlegm and is causing some nausea but has not had emesis. His fever has trended to improvement since coming to Hospital. He is denying significant headache or visual change. He does not have chest pain. He does not have abdominal pain. He has no dysuria. He is not having significant chills and has not had rigors. 10/10/2018 the patient relates is feeling somewhat better finally today. She'll having some cough. Has been seen by pulmonary critical care and they agree that there could be a new right lower lobe pneumonia and continues with antibiotic therapy with Rocephin and azithromycin. Patient does complain of some signi ficant GI upset. Multifactorial concerns. Objective - Vital Signs Vital signs: Vital Signs Temp 98.1 F 10/10/18 21:30 Pulse 69 10/10/18 21:30 Resp 20 10/10/18 21:30 BP 158/61 10/10/18 21:30 Pulse Ox 96 10/10/18 21:30 Intake & Output 10/10/18 10/10/18 10/11/18 06:59 18:59 06:59 Intake Total 600 Output Total 0 1750 0 Balance 600 -1750 0 Intake: Oral 600 Output: Urine 1750 Stool 0 0 Other: # Voids 2 3 # Bowel Movements 1 - Exam Pleasant 73-year-old male 6 feet 2 and height of a thin build who is not in distress but is coughing quite significantly throughout the exam HEENT: Anicteric conjunctiva are pink and moist nasal mucosa grossly intact without significant lesions, there is no thrush. Neck: The neck is supple without significant lymphadenopathy or thyromegaly. Lungs: There is symmetrical air entry, some expiratory wheezes are scattered, some crackles in the right base are heard without significant dullness or egophony Heart: Regular rate and rhythm with an audible S1-S2, no S3 no S4. A 2/6 systolic murmur is without acute change, PMI was nondisplaced. Abdomen: Positive bowel sounds soft and nontender without palpable masses or organomegaly. There was no guarding or rebound. Extremities: The upper extremities have excellent pulses they are symmetric, no significant petechiae or telangiectasia. No splinter hemorrhages were noted. Right lower extremity is without abnormality. The left lower extremities shows evidence the recent surgical intervention to the left hip via the anterior appr [facility]. The site is without warmth, there is no erythema crepitance or fluctuance. The site is nontender exam. He has modest good range of motion to the left hip without any significant complaints of pain with range of motion. There is nothing fluctuant and there is nothing draining from the site and nothing can be expressed. Neuro: Awake alert oriented to person place and time. There are no acute new gross focal sensory motor deficits. - Labs CBC & Chem 7: 10/09/18 07:38 10/10/18 07:36 Labs: Microbiology - Last 24 Hours (Table) 10/06/18 15:09 Blood Culture - Preliminary Blood No Growth after 96 hours Laboratory Results WBC 11.5 k/uL (3.8-10.6) H 10/09/18 07:38 RBC 3.07 m/uL (4.30-5.90) L 10/09/18 07:38 Hgb 9.7 gm/dL (13.0-17.5) L 10/09/18 07:38 Hct 29.2 % (39.0-53.0) L 10/09/18 07:38 MCV 95.2 fL (80.0-100.0) 10/09/18 07:38 MCH 31.5 pg (25.0-35.0) 10/09/18 07:38 MCHC 33.1 g/dL (31.0-37.0) 10/09/18 07:38 RDW 14.5 % (11.5-15.5) 10/09/18 07:38 Plt Count 573 k/uL (150-450) H 10/09/18 07:38 Neutrophils % 81 % 10/08/18 06:09 Lymphocytes % 11 % 10/08/18 06:09 Monocytes % 6 % 10/08/18 06:09 Eosinophils % 1 % 10/08/18 06:09 Basophils % 0 % 10/08/18 06:09 Neutrophils # 12.1 k/uL (1.3-7.7) H 10/08/18 06:09 Lymphocytes # 1.7 k/uL (1.0-4.8) 10/08/18 06:09 Monocytes # 0.9 k/uL (0-1.0) 10/08/18 06:09 Eosinophils # 0.1 k/uL (0-0.7) 10/08/18 06:09 Basophils # 0.0 k/uL (0-0.2) 10/08/18 06:09 Hypochromasia Slight 10/09/18 07:38 ESR 58 mm/hr (0-15) H 10/06/18 17:22 PT 10.5 sec (9.0-12.0) 10/06/18 15:09 INR 1.0 (<1.2) 10/06/18 15:09 APTT 19.9 sec (22.0-30.0) L 10/06/18 15:09 Sodium 134 mmol/L (137-145) L 10/06/18 15:09 Potassium 5.0 mmol/L (3.5-5.1) 10/06/18 15:09 Chloride 102 mmol/L (98-107) 10/06/18 15:09 Carbon Dioxide 22 mmol/L (22-30) 10/06/18 15:09 Anion Gap 10 mmol/L 10/06/18 15:09 BUN 20 mg/dL (9-20) 10/06/18 15:09 Creatinine 0.84 mg/dL (0.66-1.25) 10/10/18 07:36 Est GFR (CKD-EPI)AfAm >90 (>60 ml/min/1.73 sqM) 10/10/18 07:36 Est GFR (CKD-EPI)NonAf 88 (>60 ml/min/1.73 sqM) 10/10/18 07:36 Glucose 107 mg/dL (74-99) H 10/06/18 15:09 Plasma Lactic Acid Vito 1.3 mmol/L (0.7-2.0) 10/06/18 15:09 Calcium 9.5 mg/dL (8.4-10.2) 10/06/18 15:09 Total Bilirubin 0.6 mg/dL (0.2-1.3) 10/06/18 15:09 AST 30 U/L (17-59) 10/06/18 15:09 ALT 20 U/L (21-72) L 10/06/18 15:09 Alkaline Phosphatase 79 U/L (38-126) 10/06/18 15:09 C-Reactive Protein 53.8 mg/L (<10.0) H 10/06/18 15:09 Total Protein 7.0 g/dL (6.3-8.2) 10/06/18 15:09 Albumin 4.2 g/dL (3.5-5.0) 10/06/18 15:09 Urine Color Yellow 10/06/18 16:15 Urine Appearance Clear (Clear) 10/06/18 16:15 Urine pH 5.5 (5.0-8.0) 10/06/18 16:15 Ur Specific Hanna 1.024 (1.001-1.035) 10/06/18 16:15 Urine Protein Trace (Negative) H 10/06/18 16:15 Urine Glucose (UA) Negative (Negative) 10/06/18 16:15 Urine Ketones Negative (Negative) 10/06/18 16:15 Urine Blood Trace (Negative) H 10/06/18 16:15 Urine Nitrite Negative (Negative) 10/06/18 16:15 Urine Bilirubin Negative (Negative) 10/06/18 16:15 Urine Urobilinogen <2.0 mg/dL (<2.0) 10/06/18 16:15 Ur Leukocyte Esterase Negative (Negative) 10/06/18 16:15 Urine RBC 3 /hpf (0-5) 10/06/18 16:15 Urine WBC 1 /hpf (0-5) 10/06/18 16:15 Urine Bacteria Rare /hpf (None) H 10/06/18 16:15 Urine Mucus Rare /hpf (None) H 10/06/18 16:15 C. difficile (EIA) Intrp Negative (Negative) 10/09/18 16:27 Influenza Type A RNA Not Detected (Not Detectd) 10/07/18 00:20 Influenza Type B (PCR) Not Detected (Not Detectd) 10/07/18 00:20 Microbiology 10/06/18 15:09 Blood Blood Culture - Preliminary No Growth after 96 hours 10/07/18 09:45 Sputum Gram Stain - Final 10/07/18 09:45 Sputum Sputum Culture - Final 10/06/18 16:15 Urine,Voided Urine Culture - Final Assessment and Plan (1) Fever Current Visit: Yes Status: Acute Code(s): R50.9 - FEVER, UNSPECIFIED SNOMED Code(s): 373972706 (2) Leukocytosis Current Visit: Yes Status: Acute Code(s): D72.829 - ELEVATED WHITE BLOOD CELL COUNT, UNSPECIFIED SNOMED Code(s): 459737923 (3) Femoral neck fracture Current Visit: No Status: Acute Code(s): S72.009A - FRACTURE OF UNSP PART OF NECK OF UNSP FEMUR, INIT SNOMED Code(s): 5019484 (4) Acute tracheobronchitis Narrative/Plan: 73-year-old male presents to Hospital from his home setting. The patient had just been discharged from the rehab facility where he was receiving care after his left total hip arthroplasty which was via an anterior approach. He was meeting his rehab goals in consultation was discharged to home setting. With home care. The patient however was exposed to his roommate who was acutely ill with significant cough. The patient developed a cough and is now developed a fever generalized malaise in the significant symptoms of sputum production and cough. He is producing a large amount of phlegm and when he swallows that it results in some nausea. Antiemetic is been requested. It is have the patient relates that maybe he is feeling slightly better. For antibiotic therapy will utilize Rocephin and azithromycin for now for treatment of purulent tracheobronchitis with pathogen such as Haemophilus influenza and Moraxella considered. Sputum culture has been obtained and may further help direct therapy. Blood cultures obtained negative so far. The patient's hip appears to be intact and does not seem to need any surgical intervention to that site. 10/10/2018 the patient does feel slightly better. His fever has trended normalization now. Leukocytosis is improved from 25-11.5. His purulent sputum is improving. He is a 89 difficulties other than significant gastrointestinal upset. Mucinex is provided for his significant cough to try to thin his secretions. And for his stomach and GI upset Carafate has been requested. Hopefully will improve and oral cefdinir will be utilized for home. The hip is without evidence of any infection. Current Visit: Yes Status: Acute Code(s): J20.9 - ACUTE BRONCHITIS, UNSPECIFIED SNOMED Code(s): 32197313
[2018-10-11 05:19] VITALS: BP 159/66; TEMP 97.8
--- NOTE | 2018-10-11 06:41 | PN ---
PROGRESS NOTE DATE OF SERVICE: 10/10/2018 PRESENTING COMPLAINT: Cough. INTERVAL HISTORY: Patient admitted with pneumonia. Continues to improve. Diet is improving. Bringing up sputum. Does get bouts of coughing. Overall feeling much better. No fever. REVIEW OF SYSTEMS: Done for constitutional, cardiovascular, GI, pulmonary; relevant findings as above. CURRENT MEDICATIONS: Current medications are reviewed that include IV ceftriaxone and Zithromax. PHYSICAL EXAMINATION: On examination, temperature 98.1, pulse 69, respiration 20, blood pressure 158/61, pulse ox 96% on room air. GENERAL APPEARANCE: Sitting up, awake. EYES: Pupils equal. Conjunctivae normal. NECK: JVD not raised. Mass not palpable. RESPIRATORY: Effort . LUNGS: Some right basal crackles. CARDIOVASCULAR: First and second sounds normal. No edema. ABDOMEN: Soft, nontender. Liver and spleen not palpable. PSYCHIATRY: Alert and oriented x3. Mood and affect normal. INVESTIGATIONS: No blood work from today. ASSESSMENT: 1. Right lower lobe pneumonia, suspect gram-negative organism with clinical improvement. 2. Essential hypertension. 3. Reactive thrombocytosis. 4. Antibiotic associated diarrhea, improved. 5. Recent hip surgery, no evidence of infection. PLAN: Patient doing well on the current antibiotics. Care was discussed with the patient. Follow with Pulmonary and Dr. Mar, ID. MMODL / IJN: [id number] /
[2018-10-11] MEDS: predniSONE 20 MG TAB PO SCH (07:36)
[2018-10-11] MEDS: ENOXAPARIN 40 MG/0.4 ML SYRINGE SQ SCH (07:36)
[2018-10-11] MEDS: MULTIVITAMINS, THERA 1 EACH TAB PO SCH (07:36)
[2018-10-11] MEDS: METOPROLOL TARTRATE 50 MG TAB PO SCH (07:36)
[2018-10-11] MEDS: guaiFENesin-DM 600/30MG 1 EACH TAB.ER.12H PO SCH (07:36)
[2018-10-11] MEDS: SUCRALFATE 1 GM TAB PO SCH ×2 (07:37→11:55)
[2018-10-11] MEDS: ASPIRIN 81 MG PO SCH (07:37)
[2018-10-11] MEDS: LISINOPRIL 20 MG TAB PO SCH (07:37)
[2018-10-11] MEDS: BUDESONIDE 0.5 MG/2 ML NEBU INHALATION SCH (07:44)
[2018-10-11] MEDS: ALBUTEROL NEBULIZED 2.5 MG/3 ML INHALATION PRN (07:45)
[2018-10-11 07:55] VITALS: PULSE 62
[2018-10-11 11:10] VITALS: BMI 26.6
--- NOTE | 2018-10-11 15:50 | P.PN ---
Subjective Progress Note Date: 10/11/18 10/11/2018: Patient seen and examined. Patient is sitting up in the bed on room air. He states he feels good and wants to go home. He denies any shortness of breath and chest pain. He denies fevers and chills. He states that he occasionally coughs but it is improving. Objective - Vital Signs Vital signs: Vital Signs Temp 97.8 F 10/11/18 05:15 Pulse 62 10/11/18 07:55 Resp 20 10/11/18 05:15 BP 159/66 10/11/18 05:15 Pulse Ox 95 10/11/18 05:15 Intake & Output 10/10/18 10/11/18 10/11/18 18:59 06:59 18:59 Intake Total 300 480 Output Total 1750 800 Balance -1750 -500 480 Weight 94.347 kg Intake: Oral 300 480 Output: Urine 1750 800 Stool 0 Other: Voiding Method Toilet Urinal # Voids 3 1 # Bowel Movements 1 - Exam general: Patient is alert and oriented 3, no acute distress Cardiovascular: Regular rate and rhythm, S1/S2 Lungs: Diminished breath sounds bilaterally otherwise clear Abdomen: Soft nontender nondistended positive bowel sounds Extremities: No edema - Labs CBC & Chem 7: 10/09/18 07:38 10/10/18 07:36 Labs: Microbiology - Last 24 Hours (Table) 10/06/18 15:09 Blood Culture - Preliminary Blood No Growth after 96 hours Assessment and Plan Assessment: right lower lobe pneumonia Possible underlying asthma Leukocytosis and pyrexia Recent hip surgery hypertension O2 to maintain saturation greater than or equal to 90% Steroid taper Pulmicort and Albuterol Singulair Antibiotics Sputum culture Incentive spirometry and pulmonary hygiene GI and DVT prophylaxis OK to DC from pulmonary standpoint with ABX and steroid taper
== END 2018-10-11 13:50 | disposition home health service (06) | DRG 178 ==
LOC: EC 13:34 → 4MS4W 17:49 → 4SSUR 10-07 13:53 → OBSVTOIN 10-08 12:54 → 4MS4W 10-09 07:04
PROVIDERS: ADMIT Hospitalist; ATTEND Hospitalist
DX: J15.6 Pneumonia due to other Gram-negative bacteria (principal); K52.1 Toxic gastroenteritis and colitis; I10 Essential (primary) hypertension; J20.9 Acute bronchitis, unspecified; T36.95XA Adverse effect of unspecified systemic antibiotic, initial encounter; Z79.82 Long term (current) use of aspirin; Z79.899 Other long term (current) drug therapy; Z96.642 Presence of left artificial hip joint; S72.002D Fracture of unspecified part of neck of left femur, subsequent encounter for closed fracture with routine healing; D47.3 Essential (hemorrhagic) thrombocythemia; Z88.0 Allergy status to penicillin; Z87.820 Personal history of traumatic brain injury; W99 Exposure to other man-made environmental factors
CPT/HCPCS: 36415; 71046; 80053; 81001; 82565; 83605; 85025; 85027; 85610; 85652; 85730; 86140; 87040; 87070; 87086; 87205; 87324; 87502; 94640; 96360; 99285

== ENCOUNTER 2020-11-01 22:48 | Inpatient (IN) | payer MEDICARE ==
[2020-11-01] MEDS ORDERED: NITROGLYCERIN SL TABS 0.4 MG TAB SUBLINGUAL PRN (23:36)
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
[2020-11-01] MEDS ORDERED: HEPARIN SOD,PORK IN 0.45% NACL 25,000 UNIT in 0.45% NACL 1 250ML.BAG IV SCH (23:45)
[2020-11-02 03:18] LABS: HCT 41.6 % (39.0-53.0); HGB 13.9 gm/dL (13.0-17.5); MCH 32.1 pg (25.0-35.0); MCHC 33.4 g/dL (31.0-37.0); MCV 95.9 fL (80.0-100.0); Mean Platelet Volume 7.9; Platelet Count 186 k/uL (150-450); RBC 4.34 m/uL (4.30-5.90); RDW 13.1 % (11.5-15.5); WBC 7.6 k/uL (3.8-10.6)
[2020-11-02 04:46] LABS: Calcium 8.9 mg/dL (8.4-10.2); Potassium 4.1 mmol/L (3.5-5.1)
[2020-11-02 06:27] LABS: Glucose,Whole Blood 96 mg/dL (75-99)
[2020-11-02] MEDS ORDERED: HEPARIN SODIUM,PORCINE 2,500 UNIT in SODIUM CHLORIDE 0.9% 250 ML IRRIGATION PRN (07:00)
[2020-11-02] MEDS ORDERED: HEPARIN SODIUM,PORCINE 10,000 UNIT in SODIUM CHLORIDE 0.9% 1,000 ML IRRIGATION PRN (07:00)
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
[2020-11-02] MEDS ORDERED: predniSONE 10 MG TAB PO SCH (09:00)
[2020-11-02] MEDS ORDERED: lisinopriL 20 MG TAB PO SCH (09:00)
[2020-11-02] MEDS ORDERED: ASPIRIN 81 MG PO SCH (09:00)
[2020-11-02] MEDS ORDERED: ASPIRIN 325 MG TAB PO STA (09:43)
[2020-11-02] MEDS ORDERED: ATORVASTATIN 80 MG TAB PO STA (09:43)
[2020-11-02] MEDS ORDERED: SODIUM CHLORIDE 0.9% 1,000 ML in EMPTY BAG 1 BAG IV ONE (09:43)
[2020-11-02] MEDS ORDERED: NITROGLYCERIN SL TABS 0.4 MG TAB SUBLINGUAL PRN ×2 (09:43→11:55)
[2020-11-02 10:00] LABS: Chol/HDL Ratio 5.76; LDL Cholesterol,Calculated 102.4 mg/dL (0.0-131.0); VLDL Calculation 35.6 mg/dL (5.00-40.00)
[2020-11-02] MEDS ORDERED: LIDOCAINE 1% INJ 10MG/ML (20 ML MDV) ONE (10:07)
[2020-11-02] MEDS ORDERED: VERAPAMIL 2.5 MG/ML 2 ML AMP ONE (10:07)
[2020-11-02] MEDS ORDERED: fentaNYL (PF) 50 MCG/ML 2 ML AMP ONE (10:07)
[2020-11-02] MEDS ORDERED: HEPARIN SODIUM 1,000 UN/ML (10ML VL) ONE (10:07)
[2020-11-02] MEDS ORDERED: IV FLUID CONTINUATION 1,000 ML IV ONE (10:14)
[2020-11-02] MEDS ORDERED: fentaNYL (PF) 50 MCG/ML 2 ML AMP IV ONE (10:14)
[2020-11-02] MEDS ORDERED: LIDOCAINE 1% INJ 10MG/ML (20 ML MDV) SQ ONE (10:17)
[2020-11-02] MEDS ORDERED: VERAPAMIL SYRINGE (5 MG/10 ML) INTRAARTER ONE (10:18)
[2020-11-02] MEDS: HEPARIN SODIUM 1,000 UN/ML (10ML VL) IV ONE ×3 (10:27→11:41)
[2020-11-02] MEDS ORDERED: TICAGRELOR 90 MG TAB PO ONE (10:30)
[2020-11-02] MEDS ORDERED: TICAGRELOR 90 MG TAB ONE (10:30)
[2020-11-02] MEDS ORDERED: IOPAMIDOL-370 125ML BTL INJ ONE (10:44)
[2020-11-02] MEDS ORDERED: IOPAMIDOL-370 100ML BTL INJ ONE ×3 (11:01→11:37)
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
[2020-11-02] MEDS ORDERED: ZOLPIDEM 5 MG TAB PO PRN (11:55)
[2020-11-02] MEDS ORDERED: ATROPINE SULFATE 0.1 MG/ML 10ML SYRINGE IV PRN (11:55)
[2020-11-02] MEDS ORDERED: MAG HYDROX/AL HYDROX/SIMETH 30 ML CUP PO PRN (11:55)
[2020-11-02] MEDS ORDERED: RX INFO: IV CONTRAST WAS GIVEN 1 EACH MISC MISCELLANE PRN (11:55)
[2020-11-02] MEDS ORDERED: SODIUM CHLORIDE 0.9% 1,000 ML IV SCH (12:00)
[2020-11-02] MEDS: METOPROLOL TARTRATE 50 MG TAB PO SCH ×2 (12:54→20:03)
[2020-11-02] MEDS: ATORVASTATIN 80 MG TAB PO SCH (12:54)
[2020-11-02] MEDS: FAMOTIDINE 20 MG TAB PO SCH ×2 (12:55→20:04)
--- NOTE | 2020-11-02 12:58 | CC ---
CARDIAC CATHETERIZATION REPORT PROCEDURE PERFORMED: Cardiac catheterization. INDICATION: Mr. Reyes is a 75-year-old male with a history of hypertension, no prior documented history of obstructive coronary artery disease, who presented to [facility] with symptoms of progressive exertional chest discomfort and had mild troponin elevation. He was transferred to [facility] to undergo further workup. Recommendation was made regarding cardiac catheterization. The procedure as well as the risks and the complications were discussed with the patient, who was in full understanding and agreement. PROCEDURE: Patient was brought to the clinical genetics laboratory chief in a fasting semi-sedate state after receiving fentanyl and Benadryl and achieving moderate conscious sedated state. Using Xylocaine anesthesia and Seldinger technique a 6-Austrian sheath was introduced in the right radial artery. Selective right and left coronary angiography performed using 5-Austrian 3.5 bend right and left Omkar catheters. Multiple views of the right coronary artery including hemiaxial views were obtained. Following that 5-Austrian tight pigtail catheter was introduced in the left ventricle and left ventricular end-diastolic pressure was calculated. Following that catheter removed. Images were reviewed. Of note, the patient received intra-arterial verapamil and 5000 units of intravenous heparin. FINDINGS: Left main: This is a large-sized vessel, bifurcating into left circumflex, left anterior descending artery. Left main coronary artery has no evidence of high-grade stenosis. Left anterior descending artery: This is a large-sized vessel reaching to the apex with a wraparound at the apex segment giving rise to a large diagonal branch proximally. The proximal left anterior descending artery has a 20% to 30% intimal plaque. The rest of the vessel has no high-grade stenosis. Left circumflex: This is a dominant vessel. MMODL / IJN: [id number] /
--- NOTE | 2020-11-02 13:03 | PTCA ---
PERCUTANEOUSTRANS CORORONARY ANGIOGRAPHY PROCEDURE PERFORMED: Angioplasty. INDICATION: Mr. Reyes is a 75-year-old male with known history of hypertension, presented with symptoms of chest discomfort and evidence of non ST-segment elevation myocardial infarction. He was evaluated by Dr. Reis and recommendation made regarding cardiac catheterization. The procedure as well as the risks and complications were discussed with the patient who is in full understanding and agreement. PROCEDURE: A 6-Argentine FR 3.5 guiding catheter introduced in the system. After cannulating the left main, a 0.014 balanced medium weight J-wire was advanced across the lesion positioned distally. Then a 2.5 x 12 mm Trek balloon was advanced and two inflations at maximum of 8 atmospheres were done. Following that the balloon was removed and a 3.0 x 15 mm Xience Maral stent was advanced, deployed and post dilated to 16 atmospheres. After the last inflation, after appropriate wait, the balloon and the guidewire was withdrawn back in the guiding catheter. Images were obtained and repeated. Those images reveal stable successful stenting. At that point, the guiding catheter, the balloon and the guidewire removed and an attempt to cannulate the right coronary ostium using a 6- Argentine 0.75 left Amplatz and a 6-Argentine FR4 guiding catheter were unsuccessful. Subsequently 6-Argentine FR 3.5 guiding catheter was introduced in the system. After cannulating the right coronary ostium, a 0.014 balanced medium weight J-wire was advanced across the lesion and positioned distally. Subsequently another 0.014 balanced medium weight J-wire was advanced next to the first one and positioned distally in a marco a fashion. Subsequently a 2.5 x 12 mm Trek balloon was advanced and multiple inflations at maximum of 8 atmospheres were done. Following that the balloon was removed and a 3.0 x 33 mm Xience Maral stent was advanced, deployed and post dilated at 16 atmospheres. After the last inflation, after appropriate wait, the balloon was withdrawn back in the guiding catheter and a 3.0 x 15 mm NC Trek balloon was advanced and multiple inflations at maximum of 12 atmospheres were done in the stent. After the last inflation, after appropriate wait, the balloon and the guidewire were withdrawn back in the guiding catheter. Images were obtained and repeated and those images reveal stable successful stenting. At that point, the guiding catheter, the balloon and the guidewire were removed. The sheath was removed. Hemostasis was obtained with deployment of TR band. There was no immediate complication. Patient was returned to his room in stable condition. Of note, the patient received an additional 4000 units of intravenous heparin. His ACT was followed. He received oral loading dose of Brilinta. He had no significant chest discomfort with the inflation and mild EKG changes that resolved. RESULTS: 1. Successful stenting of the proximal left circumflex with reduction of stenosis from 95% to 0%. 2. Successful stenting of the mid right coronary artery with reduction of stenosis from 90% to less than 5%. RECOMMENDATION: Patient will be continued on aspirin, Brilinta, and statin. The importance of dual antiplatelet treatment were discussed with the patient and his family and they are in full understanding and agreement. Duration of sedation is 80 minutes. MMODL / IJN: [id number] /
--- NOTE | 2020-11-02 13:11 | LTR ---
11/02/2020 RE: Triston Reyes Dear Dr. Zacarias: I had the opportunity to perform cardiac catheterization and coronary angioplasty and stenting on Mr. Reyes at [facility] on November 02. A full copy of the procedure note will be forwarded to you. In brief, he was found to have significant obstructive disease involving the left circumflex and the right coronary artery. He underwent successful stenting of both vessels. I am hopeful that this procedure will stabilize his status. I want to thank you again for allowing me to participate in this gentleman's care. Please feel free to call with any questions. Sincerely yours, MD GUDELIA PaezL / ANEUDYN: [id number] /
--- NOTE | 2020-11-02 13:15 | CC ---
CARDIAC CATHETERIZATION REPORT CONTINUATION: FINDINGS: LEFT MAIN: This is a large-sized vessel, bifurcating into left circumflex, left anterior descending artery. LEFT ANTERIOR DESCENDING ARTERY: This is a large-sized vessel reaching to the apex with a wraparound apex segment giving rise to a large diagonal branch. The left anterior descending artery has a 20% to 30% intimal plaque proximally. The rest of the vessel has no high-grade stenosis. LEFT CIRCUMFLEX: This is a large nondominant vessel giving rise to 3 distal obtuse marginal branchs. There is a proximal obtuse marginal branch that is small in caliber. The left circumflex after the takeoff of the first obtuse marginal branch has a 95% stenosis. The rest of the vessel has no high-grade stenosis. RIGHT CORONARY ARTERY: This is a large dominant vessel bifurcating into PDA and posterolateral segment branches, tortuous in mid segment. The right coronary artery has a tubular lesion with multiple plaque involving the mid segment with stenosis up to 90%. The rest of the vessel has no high-grade stenosis. LEFT VENTRICULOGRAM: A left ventriculogram was not performed. HEMODYNAMICS: There was no gradient across the aortic valve. The left ventricular end-diastolic pressure was 5-10 mmHg. CONCLUSION: 1. Critical stenosis involving the proximal left circumflex and mid right coronary artery. 2. Mild disease in the left anterior descending. RECOMMENDATION: In view of finding anatomy, I recommend proceeding with angioplasty and stenting. The procedures, risks and the complications were discussed with the patient who is in full understanding and agreement. MMRALPH / ANEUDYN: [id number] /
[2020-11-02] MEDS ORDERED: lisinopriL 10 MG TAB PO STA (17:44)
[2020-11-02] MEDS: MONTELUKAST 10 MG TAB PO SCH (20:03)
[2020-11-02] MEDS: TICAGRELOR 90 MG TAB PO SCH (20:04)
[2020-11-02] MEDS: lisinopriL 10 MG TAB PO SCH (20:04)
[2020-11-03] MEDS: METOPROLOL TARTRATE 50 MG TAB PO SCH (08:21)
[2020-11-03] MEDS ORDERED: METOPROLOL TARTRATE 25 MG TAB PO STA (08:22)
[2020-11-03] MEDS: ASPIRIN 81 MG PO SCH (08:23)
[2020-11-03 08:24] LABS: Calcium 9.6 mg/dL (8.4-10.2); Potassium 4.7 mmol/L (3.5-5.1)
[2020-11-03] MEDS: ATORVASTATIN 80 MG TAB PO SCH (08:24)
[2020-11-03] MEDS: FAMOTIDINE 20 MG TAB PO SCH ×2 (08:24→19:47)
[2020-11-03] MEDS: TICAGRELOR 90 MG TAB PO SCH ×2 (08:24→19:47)
[2020-11-03] MEDS: lisinopriL 10 MG TAB PO SCH ×2 (08:24→19:47)
--- NOTE | 2020-11-03 11:19 | P.PN ---
Subjective Progress Note Date: 11/03/20 The patient was interviewed and examined resting comfortably in bed. He states he is feeling well since he underwent stenting yesterday with Dr. Weller. He denies any chest pain or chest pressure. No dyspnea, orthopnea, palpitations, dizziness, or lightheadedness. He denies any pain at his radial cath site. Coronary angiogram showed 20-30% lesion and distal LAD, as well as 95% stenosis in the left circumflex and 90% stenosis in the RCA. GENERAL: Well-appearing, well-nourished and in no acute distress. NECK: Supple without JVD or thyromegaly. LUNGS: Breath sounds clear to auscultation bilaterally. Respiration equal and unlabored. No wheezes, rales or rhonchi. HEART: Regular rate and rhythm without murmurs, rubs or gallops. S1 and S2 heard. EXTREMITIES: Normal range of motion, no edema. No clubbing or cyanosis. Peripheral pulses intact and strong. Right radial site +2 pulses. No significant bruising. VITALS: Blood pressure 142/62, pulse rate 64, temperature 98.5F, respiratory rate 17, SpO2 96% on room air TELEMETRY: Sinus bradycardia overnight. No arrhythmias LABS: Sodium 140, potassium 4.7, BUN 18, creatinine 1.2 IMPRESSION: Non-ST elevated myocardial infarction, patient underwent stenting of left circumflex and RCA Hypertension, resume home medication regimen Dyslipidemia, started on atorvastatin 80 Sinus bradycardia, reduce metoprolol 25 mg twice daily Family history of coronary artery disease PLAN: Reduce metoprolol 25 mg twice daily Encourage ambulation around the unit Continue to monitor overnight Pending discharge tomorrow The patient has been seen and evaluated. Plan of care has been reviewed and agreed upon by Dr Reis. Objective - Vital Signs Vital signs: Vital Signs Temp 98.5 F 11/03/20 08:00 Pulse 64 11/03/20 08:00 Resp 17 11/03/20 08:00 BP 142/62 11/03/20 08:00 Pulse Ox 96 11/03/20 08:00 Intake & Output 11/02/20 11/03/20 11/03/20 18:59 06:59 18:59 Intake Total 1210 240 Output Total 470 Balance 1210 -470 240 Weight 105.1 kg 1031 kg Intake: IV 100 Intake, IV Titration 150 Amount Sodium Chloride 0.9% 1, 150 000 ml @ 75 mls/hr IV . [id number] [facility] Rx#:[id number] Oral 960 240 Output: Urine 470 Other: Voiding Method Toilet Toilet Toilet # Voids 3 1 1 - Labs CBC & Chem 7: 11/02/20 02:59 11/03/20 07:09
--- NOTE | 2020-11-03 12:59 | P.PN ---
Subjective Patient came in with compensative chest pain which lasted for a few minutes started yesterday while she was shopping exertional epigastric and retrosternal squeezing like sensation about 6/10 in severity nonradiating patient denied any previous history of coronary artery disease never been a stress test does have significant family history of coronary disease. Chest pain is nonradiating no association shortness of breath lightheadedness or diaphoresis. There is some association with food. Chest pain is nonpleuritic. Patient is found to have elevated troponins of 0.6 and 0.7 EKG showed sinus bradycardia and a left ventricular hypertrophic changes and left axis deviation. Patient denied any fever chills. I do not have any chest x-ray available at this time. 11/03/2020 Patient had cardiac catheterization and stenting to left circumflex and RCA. Patient is mildly bradycardic this is expected to improve after reperfusion. Patient remains on metoprolol the dose was reduced because of this reason. Patient probably can be discharged tomorrow PHYSICAL EXAMINATION: GENERAL: The patient is alert and oriented x3, not in any acute distress. Well developed, well nourished. HEENT: Pupils are round and equally reacting to light. EOMI. No scleral icterus. No conjunctival pallor. Normocephalic, atraumatic. No pharyngeal erythema. No thyromegaly. CARDIOVASCULAR: S1 and S2 present. No murmurs, rubs, or gallops. PULMONARY: Chest is clear to auscultation, no wheezing or crackles. ABDOMEN: Soft, nontender, nondistended, normoactive bowel sounds. No palpable organomegaly. MUSCULOSKELETAL: No joint swelling or deformity. EXTREMITIES: No cyanosis, clubbing, or pedal edema. NEUROLOGICAL: Gross neurological examination did not reveal any focal deficits. SKIN: No rashes. Assessment and plan --Acute non-ST elevation myocardial infarction: Patient is status post cardiac catheterization and stenting to RCA and left circumflex, on dual antiplatelet therapy, beta nohelia, lisinopril. Posterior cardiac catheterization e chocardiac exam is pending -Mild acute renal failure probably secondary to prerenal azotemia from acute myocardial infarction. Repeat basic BMP tomorrow -Hypertension continue with lisinopril -Mild sinus bradycardia DVT prophylaxis: Patient is on IV heparin at this time Objective - Vital Signs Vital signs: Vital Signs Temp 98.5 F 11/03/20 08:00 Pulse 64 11/03/20 08:00 Resp 17 11/03/20 08:00 BP 142/62 11/03/20 08:00 Pulse Ox 96 11/03/20 08:00 Intake & Output 11/02/20 11/03/20 11/03/20 18:59 06:59 18:59 Intake Total 1210 240 Output Total 470 Balance 1210 -470 240 Weight 105.1 kg 1031 kg Intake: IV 100 Intake, IV Titration 150 Amount Sodium Chloride 0.9% 1, 150 000 ml @ 75 mls/hr IV . [id number] [facility] Rx#:[id number] Oral 960 240 Output: Urine 470 Other: Voiding Method Toilet Toilet Toilet # Voids 3 1 1 - Labs CBC & Chem 7: 11/02/20 02:59 11/03/20 07:09
[2020-11-03] MEDS: MONTELUKAST 10 MG TAB PO SCH (19:47)
[2020-11-03] MEDS: METOPROLOL TARTRATE 25 MG TAB PO SCH (19:47)
--- NOTE | 2020-11-04 05:00 | ECHOF ---
Referral Reason:or MEASUREMENTS -------- HEIGHT: 188.0 cm WEIGHT: 97.5 kg BP: 157/72 RVIDd: 3.0 cm (< 3.3) IVSd: 1.1 cm (0.6 - 1.1) LVIDd: 5.4 cm (3.9 - 5.3) LVPWd: 1.2 cm (0.6 - 1.1) IVSs: 1.8 cm LVIDs: 3.3 cm LVPWs: 1.8 cm LA Diam: 3.4 cm (2.7 - 3.8) LAESV Index (A-L): 22.00 ml/m Ao Diam: 4.0 cm (2.0 - 3.7) AV Cusp: 2.3 cm (1.5 - 2.6) MV EXCURSION: 14.924 mm (> 18.000) MV EF SLOPE: 26 mm/s (70 - 150) EPSS: 1.0 cm MV E David: 0.71 m/s MV DecT: 443 ms MV A David: 1.16 m/s MV E/A Ratio: 0.61 AR PHT: 1033 ms FINDINGS -------- Sinus rhythm. This was a technically adequate study. The left ventricular size is normal. There is borderline concentric left ventricular hypertrophy. Overall left ventricular systolic function is normal with, an EF between 55 - 60 %. The right ventricle is normal in size. Normal LA size by volume 22+/-6 ml/m2. The right atrial size is normal. Aneurysmal Interatrial septum. Aortic valve is trileaflet and is mildly thickened. There is mild aortic regurgitation. Mild mitral annular calcification present. Mild mitral regurgitation is present. The tricuspid valve appears structurally normal. Mild tricuspid regurgitation present. The pulmonic valve was not well visualized. Trace/mild (physiologic) pulmonic regurgitation. The aortic root is dilated measuring 4.0cm. IVC Not well visulized. There is no pericardial effusion. CONCLUSIONS -------- 1. There is borderline concentric left ventricular hypertrophy. 2. Overall left ventricular systolic function is normal with, an EF between 55 - 60 %. 3. Normal LA size by volume 22+/-6 ml/m2. 4. Aneurysmal Interatrial septum. 5. There is mild aortic regurgitation. 6. Mild mitral annular calcification present. 7. Mild mitral regurgitation is present. 8. Mild tricuspid regurgitation present. 9. The aortic root is dilated measuring 4.0cm. 10. There is no pericardial effusion. SEED CORE OPERATOR: Kadi Moraes RDCS
[2020-11-04 07:21] LABS: Calcium 9.2 mg/dL (8.4-10.2)
[2020-11-04 07:33] LABS: Potassium 4.3 mmol/L (3.5-5.1)
[2020-11-04] MEDS: METOPROLOL TARTRATE 25 MG TAB PO SCH (09:26)
[2020-11-04] MEDS: ASPIRIN 81 MG PO SCH (09:26)
[2020-11-04] MEDS: lisinopriL 10 MG TAB PO SCH (09:27)
[2020-11-04] MEDS: FAMOTIDINE 20 MG TAB PO SCH (09:27)
[2020-11-04] MEDS: TICAGRELOR 90 MG TAB PO SCH (09:27)
[2020-11-04] MEDS: ATORVASTATIN 80 MG TAB PO SCH (09:27)
--- NOTE | 2020-11-04 10:11 | P.PN ---
Subjective Progress Note Date: 11/04/20 The patient was interviewed and examined resting comfortably in bed. He states he is feeling well since he underwent stenting on Wednesday. He denies any chest pain or chest pressure. No dyspnea, orthopnea, palpitations, dizziness, or lightheadedness. He was up ambulating in the halls yesterday with the nursing staff. He denies any exertional symptoms. Coronary angiogram showed 20-30% lesion and distal LAD, as well as 95% stenosis in the left circumflex and 90% stenosis in the RCA. GENERAL: Well-appearing, well-nourished and in no acute distress. NECK: Supple without JVD or thyromegaly. LUNGS: Breath sounds clear to auscultation bilaterally. Respiration equal and unlabored. No wheezes, rales or rhonchi. HEART: Regular rate and rhythm without murmurs, rubs or gallops. S1 and S2 heard. EXTREMITIES: Normal range of motion, no edema. No clubbing or cyanosis. Peripheral pulses intact and strong. Right radial site +2 pulses. No significant bruising. VITALS: Blood pressure 115/62, pulse rate 52, respiratory rate 16, temp 98.2F, SpO2 95% on room air TELEMETRY: Sinus bradycardia in the mid 50s overnight. No arrhythmias LABS: Sodium 139, potassium 4.3, BUN 19, creatinine 1.28 IMPRESSION: Non-ST elevated myocardial infarction, patient underwent stenting of left cir cumflex and RCA Hypertension, stable Dyslipidemia, started on atorvastatin 80 Sinus bradycardia, on low dose beta nohelia Family history of coronary artery disease PLAN: Discharge on dual antiplatelet therapy and statin Followup in office 1-[address] Reis The patient has been seen and evaluated. Plan of care has been reviewed and agreed upon by Dr Reis. Objective - Vital Signs Vital signs: Vital Signs Temp 98.2 F 11/04/20 04:00 Pulse 52 L 11/04/20 04:00 Resp 16 11/04/20 04:00 BP 115/62 11/04/20 04:00 Pulse Ox 95 11/04/20 04:00 Intake & Output 11/03/20 11/04/20 11/04/20 18:59 06:59 18:59 Intake Total 1278 360 Output Total 580 Balance 1278 -580 360 Weight 103.2 kg Intake: Oral 1278 360 Output: Urine 580 Other: Voiding Method Toilet # Voids 3 1 - Labs CBC & Chem 7: 11/02/20 02:59 11/04/20 06:03 Labs: Abnormal Lab Results - Last 24 Hours (Table) 11/04/20 Range/Units 06:03 Creatinine 1.28 H (0.66-1.25) mg/dL
[2020-11-04 10:28] VITALS: BP 116/59; PULSE 71; RESP 18; TEMP 97.4
[2020-11-04 11:21] VITALS: BMI 29.2
--- NOTE | 2020-11-04 20:42 | DS ---
DISCHARGE SUMMARY DATE OF ADMISSION: 11/01/2020. DATE OF DISCHARGE: 11/04/2020. DISCHARGE DIAGNOSES: 1. Acute non-ST elevation myocardial infarction. The patient went stenting to the RCA and the left circumflex. 2. Essential hypertension. 3. Sinus bradycardia. 4. Hyperlipidemia. CONSULTATIONS: [facility] HOSPITAL COURSE: Patient presented with chest pain, ruled in for an acute MS, non Q-wave type. EKG showed nonspecific T-wave changes. A 2D echocardiogram showed the EF of 55-60 percent with no obvious wall motion abnormality. Cardiac catheterization was carried out. More details in cardiology notes. Successful stenting of the proximal left circumflex and of the mid RCA was carried out. Today: Sitting up in chair. No cardiac symptoms. Up and about. Cleared by Cardiology to go home. On examination, temperature 97.4, pulse 71, respiratory 18, blood pressure 116/59, pulse ox 96 percent room air. CARDIOVASCULAR: 1st and 2nd sounds normal. No edema. LUNGS: Are clear. PSYCH: A&O x3. Mood and affect normal. INVESTIGATIONS: Potassium 4.3, creatinine 1.28, LDL 102. 2D echocardiogram EF 55-60 percent. DISCHARGE MEDICATIONS: 1. Vasotec 10 mg p.o. daily. 2. Serophene 50 mg p.o. daily. 3. Aspirin 81 mg daily. 4. Lipitor 80 mg daily. 5. Nitrostat 0.4 sublingual q.5 p.r.n. 6. Brilinta 90 mg p.o. b.i.d. 7. Pepcid 20 mg b.i.d. 8. Lopressor 25 mg p.o. b.i.d. 9. Singulair 10 mg p.o. q.h.s. 10.Zestril 10 mg q.h.s. FOLLOW UP: Follow up with Dr. DAYO Reis in 2 weeks. Follow up with Dr. Dustin Zacarias in 3 days. MMODL / IJN: [id number] /
== END 2020-11-04 14:28 | disposition home or self-care (01) | DRG 247 ==
LOC: EC 22:48 → 3SCARD 23:36
PROVIDERS: ADMIT Hospitalist; ATTEND Hospitalist
PROC: 027135Z Dilation of Coronary Artery, Two Arteries with Two Drug-eluting Intraluminal Devices, Percutaneous Approach (ICD-10-PCS; principal; 2020-11-02 10:00)
PROC: 4A023N7 Measurement of Cardiac Sampling and Pressure, Left Heart, Percutaneous Approach (ICD-10-PCS; principal; 2020-11-02 10:00)
PROC: B2111ZZ Fluoroscopy of Multiple Coronary Arteries using Low Osmolar Contrast (ICD-10-PCS; principal; 2020-11-02 10:00)
DX: I21.4 Non-ST elevation (NSTEMI) myocardial infarction (principal); N17.9 Acute kidney failure, unspecified; I10 Essential (primary) hypertension; E11.9 Type 2 diabetes mellitus without complications; E78.5 Hyperlipidemia, unspecified; I25.10 Atherosclerotic heart disease of native coronary artery without angina pectoris; E66.9 Obesity, unspecified; Z68.29 Body mass index [BMI] 29.0-29.9, adult; Z79.82 Long term (current) use of aspirin; Z79.899 Other long term (current) drug therapy; Z82.49 Family history of ischemic heart disease and other diseases of the circulatory system; E27.8 Other specified disorders of adrenal gland; Z87.820 Personal history of traumatic brain injury; Z98.890 Other specified postprocedural states; Z96.649 Presence of unspecified artificial hip joint; R00.1 Bradycardia, unspecified
CPT/HCPCS: 80048; 80061; 84484; 85027; 85730; 93005; 93306; 93458; 94760; 99285

== ENCOUNTER 2020-12-05 12:48 | Emergency (ER) | payer MEDICARE ==
[2020-12-05] MEDS ORDERED: MORPHINE SULFATE 4 MG/ML SYRINGE IV STA (13:27)
[2020-12-05 13:56] LABS: Basophils % (A) 0 %; Eosinophils # (A) 0.1 k/uL (0-0.7); Eosinophils % (A) 1 %; HCT 43.6 % (39.0-53.0); HGB 14.8 gm/dL (13.0-17.5); INR 0.9 (<1.2); Lymphocytes # (A) 1.1 k/uL (1.0-4.8); Lymphocytes % (A) 8 %; MCH 32.8 pg (25.0-35.0); MCHC 33.9 g/dL (31.0-37.0); Mean Platelet Volume 8.2; Monocytes # (A) 0.9 k/uL (0-1.0); Monocytes % (A) 6 %; Neutrophils % (A) 84 %; Platelet Count 221 k/uL (150-450); Prothrombin Time 10.1 sec (9.0-12.0); RBC 4.49 m/uL (4.30-5.90); RDW 12.6 % (11.5-15.5); WBC 14.3 k/uL (3.8-10.6)
[2020-12-05 13:58] LABS: Albumin 4.4 g/dL (3.5-5.0); Calcium 9.3 mg/dL (8.4-10.2); Potassium 4.4 mmol/L (3.5-5.1); Total Bilirubin 0.5 mg/dL (0.2-1.3); Total Protein 6.8 g/dL (6.3-8.2)
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
--- NOTE | 2020-12-05 14:06 | XR ---
EXAMINATION TYPE: XR chest 2V DATE OF EXAM: 12/05/2020 COMPARISON: Chest x-ray October 06, 2018 HISTORY: Right-sided pain. TECHNIQUE: Frontal and lateral views of the chest are obtained. FINDINGS: There is chronic parenchymal changes bilaterally without suspicious focal air space opacit y, pleural effusion, or pneumothorax seen. The cardiac silhouette size is stable and within normal l imits. Several Old bilateral rib fractures are redemonstrated. IMPRESSION: Chronic changes without acute pulmonary process.
[2020-12-05] MEDS ORDERED: ACET/COD 300 MG/30 MG STARTER PACK 6 TAB BTL PO STA (15:02)
[2020-12-05 15:34] VITALS: BP 164/79; PULSE 80; RESP 18; TEMP 98.3
== END 2020-12-05 15:33 | disposition home or self-care (01) ==
LOC: EC 12:48
DX: M43.6 Torticollis (principal); I10 Essential (primary) hypertension; I25.2 Old myocardial infarction; Z79.82 Long term (current) use of aspirin; Z79.899 Other long term (current) drug therapy; Z88.0 Allergy status to penicillin
CPT/HCPCS: 36415; 93005; 80053; 83735; 84484; 85025; 85610; 85730; 71046; 96374; 99284; J2270